=== PATIENT | female | born 1960 | race African-American/Black ===

== ENCOUNTER 2016-12-21 12:22 | Emergency (ER) | payer MEDICARE, OTHER ==
[~2016-12-21] VITALS: Ht 157.5 cm; Wt 104.3 kg
--- NOTE | ~2016-12-21 | EKG ---
PATIENT: DANDRE MARTINEZ UNIT #: [id number] Ventricular Rate: 77 BPM Atrial Rate: 77 BPM P-R Interval: 172 ms QRS Duration: 138 ms Q-T Interval: 428 ms QTC Calculation(Bezet): 484 ms P [place]: 42 degrees Calculated R [place]: 33 degrees Calculated T [place]: 32 degrees Diagnosis Line: Sinus rhythm with occasional Premature ventricular Diagnosis Line: complexes Diagnosis Line: Possible Left atrial enlargement Diagnosis Line: Left bundle branch block Diagnosis Line: Abnormal ECG Diagnosis Line: When compared with ECG of 10-MAY-2016 11:44, Diagnosis Line: No significant change was found Diagnosis Line: Confirmed by THEODORE SOTELO MD ([id number]) on 12/22/2016 Diagnosis Line: 10:21:22 PM INTERPRETING MD: DEEPAK PEREZ
--- NOTE | ~2016-12-21 | CR72 ---
[facility] A Service of [facility] RADIOLOGY TEXT RESULTS PATIENT: DANDRE MARTINEZ LOCATION: [facility] : 56 UNIT #: [id number] AGE: [address]: Mainor Michaels MD SEX: F ORDER DR: [id number] [facility] [address] [place], [place] [address] [id number] MR#: [id number] Acc #: [id number] NAME: DANDRE MARTINEZ : 1960 SEX: F STUDY DATE/TIME: 12/21/2016 UNIT: [facility] ROOM: STUDY DESCRIPTION: CR Chest Single View Portable Attending Physician: Mainor Michaels M.D. Ordering Physician: Mainor Michaels M.D. Primary Care Physician: Roxana Lopez M.D. MEDICAL IMAGING REPORT This report is preliminary unless electronic signature is present EXAM Chest portable 12/21/2016 1314 hours. HISTORY 56-year-old woman with chest pain, shortness of air and bilateral leg pain for 1 day. COMPARISON 05/10/2016 FINDINGS Single upright portable view demonstrates cardiac silhouette mildly prominent but unchanged. Aortic contours are normal. The pulmonary vascularity is normal. The lungs are clear, and there are no effusions. IMPRESSION Mild prominence of the cardiac silhouette unchanged from 05/10/2016. The lungs are clear, and there are no effusions. Dictated by... Freda Richmond M.D. THIS IS AN ELECTRONICALLY VERIFIED REPORT Freda Richmond M.D. at 12/22/2016 9:28 AM [place] TD: 12/21/2016 15:32 JOB #: [id number] MEDICAL IMAGING REPORT Page 1 of 1 COPY
[~2016-12-21 12:22] MED LIST: ACETAMINOPHEN PO; ACTOS; ALBUTEROL17 G1 IH; ALBUTEROL17 GM; ALBUTEROL17 GM INH; AMARYL PO; AMLODIPINE BESY10 MG PO; AMOXICILLIN PO; ASPIRIN EC81 M1 PO; ASPIRIN ENTERI325 M1 PO; ASPIRIN PO; ATIVAN0.5 M1 PO; BACITRACIN15 GM OINT EXT; CARDIZEM SR; CARDIZEM SR PO; CLARITIN10 M3; CRESTOR; CRESTOR PO; CRESTOR40 MG PO; DESYREL50 MG PO; DULERA 100 MCG/13 GM; DULERA 100 MCG/13 GM INH; FIBERCON625 MG PO; FLOVENT DISKU100 MCG IH; GLUCOPHAGE XR500 MG PO; GLUCOTROL PO; GLUCOTROL XL PO; HCTZ PO; IBUPROFEN800 MG PO; LANTUS INSULIN SQ; LANTUS100 U/ML; LANTUS100 U/ML SQ; LANTUS100 U/ML SUBQ; LAXATIVE5 M1; LESCOL; LEVEMIR; LISINOPRIL; LISINOPRIL PO; LISINOPRIL30 MG PO; LOC PO; LOPRESSOR PO; LORTAB 7.5-5001 TAB PO; LOW DOSE ASPIRI81 M2; MAGNESIUM400 MG PO; METFORMIN; METFORMIN HCL1000 M1 PO; METFORMIN HCL500 M1; METFORMIN HCL500 M3 PO; METFORMIN PO; METOPROLOL SUC100 MG PO; MOTRIN50 MG PO; NEURONTIN PO; NEXIUM PO; NITROSTAT0.4 MG SL; NORVASC; NORVASC PO; ORUDIS75 M1 PO; PRAVASTATIN SOD40 MG PO; PRILOSEC40 MG PO; PRINIVIL40 MG PO; PROTONIX PO; TOPROL XL; TOPROL XL PO; TOPROL XL50 MG PO; TRAMADOL HCL50 M1 PO; UL PHARMACY; VIBRAMYCIN100 M1 PO; ZESTRIL10 M2; ZOLOFT50 MG PO; ZYVOX600 MG PO; [UNRECOGNIZED DRUG - REMARK]
[2016-12-21 13:24] LABS: BASOPHIL# 0.1 X10e3 (0-0.3); BASOPHIL% 0.8 % (0-2.5); EOSINOPHIL# 0.1 X10e3 (0-0.7); EOSINOPHIL% 0.9 % (0.0-7.0); HEMATOCRIT 46.2 % (35.0-45.0); HEMOGLOBIN 14.7 gm/dL (12.0-16.0); LYMPHOCYTE# 2.4 X10e3 (1.0-3.5); LYMPHOCYTE% 28.4 % (17.0-45.0); MEAN CELL VOLUME 84.8 FL (83-96); MEAN CORPUSCULAR HGB CONC 31.9 g/dL (30-36); MEAN PLATELET VOLUME 10.1 FL (6.5-11.5); MONOCYTE# 0.6 X10e3 (0-1.0); MONOCYTE% 7.1 % (3.0-12.0); NEUTROPHIL# 5.4 X10e3 (1.5-7.1); NEUTROPHIL% 62.8 % (40-75); PLATELET COUNT 173 X10e3 (140-420); RED BLOOD COUNT 5.45 X10e (3.90-5.30); WHITE BLOOD COUNT 8.6 X10e3 (4.0-10.5)
[2016-12-21 13:25] LABS: DIFF IND NO
[2016-12-21 13:44] LABS: POC - CKMB 1.3 ng/mL (0.0-7.9); POC - TROPONIN <0.05 ng/mL (<=0.05)
[2016-12-21 13:49] LABS: ALBUMIN SERUM 4.5 g/dL (3.5-5.0); BILIRUBIN, DIRECT 0.1 mg/dL (0.0-0.2); BILIRUBIN,INDIRECT 0.2 mg/dL (0.0-0.9); BILIRUBIN,TOTAL 0.3 mg/dL (0.2-2.0); BUN/CREATININE RATIO 12.85; CALCIUM SERUM 9.4 mg/dL (8.4-10.2); CREATININE SERUM 0.7 mg/dL (0.6-1.4); GLOM FILT RATE Estimated 110.7 mL/min (>60); POTASSIUM 3.9 mmol/L (3.5-5.1); PROTEIN TOTAL SERUM 8.1 g/dL (6.0-8.3)
[2016-12-21 15:17] LABS: POC - CKMB 1.2 ng/mL (0.0-7.9); POC - TROPONIN <0.05 ng/mL (<=0.05)
== END 2016-12-21 15:30 | disposition home or self-care (01) ==
LOC: CED 12:22
PROVIDERS: Emergency Medicine
DX: M54.5 Low back pain (principal); G89.29 Other chronic pain; R07.89 Other chest pain; I25.10 Atherosclerotic heart disease of native coronary artery without angina pectoris; E11.9 Type 2 diabetes mellitus without complications; E78.5 Hyperlipidemia, unspecified; I10 Essential (primary) hypertension; Z88.2 Allergy status to sulfonamides; Z88.1 Allergy status to other antibiotic agents; F17.200 Nicotine dependence, unspecified, uncomplicated
CPT/HCPCS: 36415; 71010; 80048; 80076; 82553; 84484; 85025; 93005; 99284